=== PATIENT | female | born 1960 | race Caucasian/White ===

== ENCOUNTER 2020-12-22 18:18 | Emergency (ER) | payer MEDICARE ==
[~2020-12-22] VITALS: Ht 163.8 cm; Wt 126.1 kg
[2020-12-22] MEDS ORDERED: ONDANSETRON HCL INJ 2MG/ML 2ML 2 MG/ML VIAL IV ONE (19:00)
[2020-12-22] MEDS ORDERED: SODIUM CHLORIDE 0.9% 1000ML 1,000 ML IV STA (19:00)
[2020-12-22] MEDS ORDERED: KETOROLAC TROMETHAMINE 30 MG/ML VIAL IV ONE (19:00)
[2020-12-22] MEDS ORDERED: FAMOTIDINE 20 MG/2 ML VIAL IV ONE (19:00)
[2020-12-22] MEDS ORDERED: ONDANSETRON ODT4 MG PO (19:15)
[2020-12-22] MEDS ORDERED: ACETAMINOPHEN-1 EAC4 PO (19:15)
[2020-12-22 20:42] VITALS: BP 162/84
== END 2020-12-22 20:42 | disposition home or self-care (01) ==
LOC: FSED 19:00
DX: M54.50 Low back pain, unspecified (principal); N13.2 Hydronephrosis with renal and ureteral calculous obstruction; R11.2 Nausea with vomiting, unspecified; I10 Essential (primary) hypertension; E11.9 Type 2 diabetes mellitus without complications; N18.9 Chronic kidney disease, unspecified
CPT/HCPCS: 74176; 80053; 81003; 85025; 99284

== ENCOUNTER 2023-12-09 12:15 | Emergency (ER) | payer MEDICARE ==
[~2023-12-09] VITALS: Ht 163.8 cm; Wt 93.9 kg
[~2023-12-09 12:15] MED LIST: ACETAMINOPHEN-1 EAC4 PO; ARIPIPRAZOLE5 MG PO; AZELASTINE137 MCG/0. IH; CEFDINIR300 MG PO; DICYCLOMINE HCL20 MG PO; GUAIFENESIN400 MG PO; METFORMIN HCL500 M1 PO; NAPROXEN500 M1 PO; ONDANSETRON HCL8 MG PO; ONDANSETRON ODT4 MG PO; RYBELSUS14 MG PO; SERTRALINE HCL100 MG PO; TIZANIDINE HCL4 MG PO; TOPIRAMATE25 MG PO; Tylenol#3 PO
[2023-12-09 12:20] VITALS: PULSE 99; RESP 15; TEMP 99; O2SAT 100
== END 2023-12-09 14:14 | disposition home or self-care (01) ==
LOC: ER 12:25
DX: R50.9 Fever, unspecified (principal); R53.1 Weakness; Z93.6 Other artificial openings of urinary tract status; I12.9 Hypertensive chronic kidney disease with stage 1 through stage 4 chronic kidney disease, or unspecified chronic kidney disease; E11.22 Type 2 diabetes mellitus with diabetic chronic kidney disease; N18.9 Chronic kidney disease, unspecified; E11.40 Type 2 diabetes mellitus with diabetic neuropathy, unspecified; E78.5 Hyperlipidemia, unspecified; E78.00 Pure hypercholesterolemia, unspecified
CPT/HCPCS: 99282